=== PATIENT | male | born 1995 ===

== ENCOUNTER 2021-01-21 17:01 | Emergency (ER) | payer BC ==
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
[2021-01-21] MEDS ORDERED: TETANUS & DIPHTHERIA TOX,ADULT 0.5 ML VIAL ONE (20:05)
[2021-01-21] MEDS ORDERED: LIDOCAINE 1% W/EPI 1:100,000 MDV 20 ML VIAL ONE (20:05)
[2021-01-21] MEDS ORDERED: ONDANSETRON 4 MG/2 ML VIAL ONE (20:07)
[2021-01-21] MEDS ORDERED: MORPHINE 4 MG/ML SYR ONE ×2 (20:07→21:29)
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
[2021-01-21 21:42] VITALS: TEMP 98.8
[2021-01-21 21:46] VITALS: BP 128/74; O2SAT 100
== END 2021-01-21 21:19 | disposition home or self-care (01) ==
LOC: ER 17:01
PROC: 0JQ10ZZ Repair Face Subcutaneous Tissue and Fascia, Open Approach (ICD-10-PCS; principal; 2021-01-21)
PROC: 0CQ10ZZ Repair Lower Lip, Open Approach (ICD-10-PCS; 2021-01-21)
DX: S01.81XA Laceration without foreign body of other part of head, initial encounter (principal); V23.4XXA Motorcycle driver injured in collision with car, pick-up truck or van in traffic accident, initial encounter; Y93.89 Activity, other specified; Y92.414 Local residential or business street as the place of occurrence of the external cause; Z23 Encounter for immunization; Z88.6 Allergy status to analgesic agent
CPT/HCPCS: 82565; 70450; 72125; 71260; 74177; 90471; 90714; 96375; 96374; 99284; 12011 ×2; Q9967; J2405